=== PATIENT | male | born 1980 | race Caucasian/White ===

== ENCOUNTER 2018-06-18 14:29 | Emergency (ER) | payer SELFPAY ==
[~2018-06-18] VITALS: Ht 167.6 cm; Wt 76.2 kg
[2018-06-18 14:33] VITALS: Ht 167.6 cm; Wt 76.2 kg
[2018-06-18 15:14] LABS: BASOPHIL % 0.4 % (0-2); PLATELET COUNT 227 x10^3mcL (130-400); RED CELL DISTRIBUTION WIDTH 12.7 % (11.5-14.5)
[2018-06-18 15:20] LABS: CARBON DIOXIDE 29.7 mmol/L (21-32); CHLORIDE SERUM 102 mmol/L (98-107); CREATININE SERUM 0.8 mg/dL (0.7-1.3); GFR1 > 60 mL/min; GLUCOSE SERUM 114 mg/dL (74-106); POTASSIUM SERUM 3.7 mmol/L (3.5-5.1); SODIUM SERUM 138 mmol/L (136-145)
[2018-06-18 15:25] LABS: ALKALINE PHOSPHATASE 65 U/L (46-116); ALT/SGPT 50 U/L (16-63); AST/SGOT 22 U/L (15-37); BILIRUBIN TOTAL 0.5 mg/dL (0.20-1.00); TOTAL PROTEIN, SERUM 8.1 g/dL (6.4-8.2)
[2018-06-18 16:14] VITALS: BP 112/67
== END 2018-06-18 16:38 | disposition home or self-care (01) ==
LOC: ED 14:29
PROVIDERS: Emergency Medicine
DX: R42 Dizziness and giddiness (principal)
CPT/HCPCS: J2765; J7030; J8597

== ENCOUNTER 2018-09-12 17:10 | Emergency (ER) | payer SELFPAY ==
[~2018-09-12] VITALS: Ht 167.6 cm; Wt 78.0 kg
[2018-09-12 17:23] VITALS: Ht 167.6 cm; Wt 78.0 kg
[2018-09-12 18:27] VITALS: BP 140/74
== END 2018-09-12 18:27 | disposition home or self-care (01) ==
LOC: ED 17:10
DX: M54.2 Cervicalgia (principal); V48.5XXA Car driver injured in noncollision transport accident in traffic accident, initial encounter; Y93.I9 Activity, other involving external motion; Y92.488 Other paved roadways as the place of occurrence of the external cause; Y99.8 Other external cause status

== ENCOUNTER 2018-09-24 17:47 | Emergency (ER) | payer SELFPAY ==
[~2018-09-24] VITALS: Ht 167.6 cm; Wt 77.6 kg
[2018-09-24 18:18] VITALS: Ht 167.6 cm; Wt 77.6 kg
[2018-09-24 21:23] VITALS: BP 130/78
== END 2018-09-24 21:23 | disposition home or self-care (01) ==
LOC: ED 17:47
DX: R51 Headache (principal); R04.0 Epistaxis
CPT/HCPCS: J1885